=== PATIENT | male | born 1990 | race Two or more races ===

== ENCOUNTER 2023-04-04 13:08 | Emergency (ER) | payer MEDICAID ==
[~2023-04-04] VITALS: Ht 175.3 cm; Wt 104.8 kg
[2023-04-04 14:50] VITALS: BP 118/71; PULSE 51; RESP 16; TEMP 98.1; O2SAT 98
[2023-04-04] MEDS ORDERED: IBUP-1456 PO (15:24)
== END 2023-04-04 15:46 | disposition home or self-care (01) ==
LOC: ER 13:08
DX: S63.591A Other specified sprain of right wrist, initial encounter (principal); Z79.1 Long term (current) use of non-steroidal anti-inflammatories (NSAID); X58.XXXA Exposure to other specified factors, initial encounter; Y93.E9 Activity, other interior property and clothing maintenance; Y92.096 Garden or yard of other non-institutional residence as the place of occurrence of the external cause; Y99.8 Other external cause status
CPT/HCPCS: 73110